=== PATIENT | female | born 2000 | race Hispanic/Latino ===

== ENCOUNTER 2021-09-27 11:25 | Emergency (ER) | payer OTHER ==
--- OUTSIDE RECORDS SUMMARY | 2021-09-27 11:30 | XMS REPORT | Continuity of Care Document ---
:[address] [facility] t Address 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 Clinician Ned TORRES, N Attending Clinician MIKE Admitting Clinician Unavailable Payers Payer Name Policy Type Policy Number Effective Date Expiration Date Latrice solorio [place] [employer] [id number] 2019 HEALTH 00:00:00 Problems Condition Condition Condition Status Onset Resolution Last Treating Co mments Source Name Details Category Date Date Treatment Clinician Date No known No known Disease Unive rs active active ity of problems problems [facility] Allergies, Adverse Reactions, Alerts Allergy Allergy Status Severity Reaction(s) Onset Inactive Treating Comm ents Source Name Type Date Date Clinician DIPHENHY DRUG Active Hives 2018- Univers DRAMINE INGREDI 3-20 ity of HCL 00:00: [address] Diphenhy Propensi Active Hives 2018- Univer s dramine ty to 3-20 ity of Hcl adverse 00:00: [place] reaction [address] [place] [address] diphenhy DA Active [place] 2019- [facility] 1-11 [place] [facility] [place] [place] 2016- [facility] dr[facility] 2-18 [place] 00:00: [facility] CEFTRIAX DRUG Active Unknown-Cmnt Un katty GINGER INGREDI 04-27 ity of 00:00: [place] 00 Medical Branch Ceftriax Propensi Active Unknown - Red Uni vers one ty to See comments 04-27 streaking i ty of adverse 00:00: [place] reaction 00 Medical s Branch Social History Social Habit Start Date Stop Date Quantity Comments Source Exposure to Yes University of SARS-CoV-2 [facility] (event) Branch History SDUT University o f Alcohol Comment [facility] History SDOH University o f Alcohol Std [facility] Drinks [facility] History [facility] University o f Alcohol Binge [facility] Alcohol intake 2021-07-28 2021-07-28 Lifetime University of 00:00:00 00:00:00 non-drinker [facility] (finding) Branch History SDOH 2019-03-17 2019-03-17 1 University o f Alcohol Frequency 00:00:00 00:00:00 [facility] edical Branch Tobacco use and 2018-10-23 2018-10-23 Never used Universit y of exposure 00:00:00 00:00:00 [facility] Sex Assigned At [birth year] Universit y of 00:00:00 00:00:00 [facility] Smoking Status Start Date Stop Date Source Never smoker [facility] Medications Ordered Filled Start Stop Current Ordering Indication Dosage Frequency Signature Comments Components Source Medication Medication Date Date Medication? Clinician (SIG) Name Name HYDROcodone 2020-08- No 1{tbl} 1 tablet, Univers -acetaminop 2- 12-24 Oral, ity of hen (NORCO 08:45: 07:49 ONCE, 1 Chirag as 5) 5-325 mg 00 :00 dose, On Medi ian tablet 1 Fri Branch tablet 07/29/21 at 0245, GOVIND ibuprofen 2020-08- No 800mg 800 mg, Uni vers (IBU) 2-24 12-24 Oral, ity of tablet 800 08:45: 07:49 ONCE, 1 Chirag as mg 00 :00 dose, On Medical Fri Branch 07/29/21 at 0245, GOVIND HYDROcodone 2020-08- No 1{tbl} 1 tablet, Univers -acetaminop 2-24 12-24 Oral, ity of hen (NORCO 05:07: 05:12 ONCE, 1 Chirag as 5) 5-325 mg 00 :00 dose, On Medi ian tablet 1 Apryl Branch tablet 07/28/21 at 2315, GOVIND ibuprofen 2020-08 Yes [id number] 800mg Take 1 Univers 800 mg 2-24 [id number] tablet by ity of tablet 00:00: mouth [place] 00 every 8 Medical (eight) Branch hours as needed for Pain (scale 4-6). acetaminoph 2020-08- Yes [id number] 1{tbl} Take 1 U nivers en-codeine 2-24 - tablet by ity of 300-30 mg 00:00: 05:59 mouth [place] tablet 00 :00 every 6 Medical (six) Branch hours as needed for Pain (scale 7-10) for up to 7 days. Indication s: acute pain acetaminoph 2020-08- No [id number] 1{tbl} Take 1 U nivers en-codeine 2-23 12-23 tablet by ity of 300-30 mg 00:00: 00:00 mouth [place] tablet 00 :00 every 6 Medical (six) Branch hours as needed for Pain (scale 7-10) for up to 7 days. Indication s: acute pain levonorgest 2020-08 Yes [id number] 1{tbl} Take 1 Univers rel-ethinyl 1-23 tablet by ity of estradiol 00:00: mouth [place] (SRONYX) 00 daily. Medical 0.1-20 Branch mg-mcg per tablet levonorgest 2020-08 Yes [id number] 1{tbl} Take 1 Univers rel-ethinyl 1-23 tablet by ity of estradiol 00:00: mouth [place] (SRONYX) 00 daily. Medical 0.1-20 Branch mg-mcg per tablet levonorgest 2020- No [id number] 1{tbl} Take 1 Univers rel-ethinyl 3-18 11-23 tablet by it y of estradiol 00:00: 00:00 mouth [place] (SRONYX) 00 :00 daily. Medical 0.1-20 Branch mg-mcg per tablet Immunizations Ordered Immunization Filled Immunization Date Status Commen ts Source Name Name Typhoid, Unspecified 2017-02-08 Completed Univ ersity of Formulation 00:00:00 [facility] Typhoid, Unspecified 2017-02-08 Completed Univ ersity of Formulation 00:00:00 [facility] Meningococcal 2013-01-07 Completed University of Vaccine 00:00:00 [facility] TDAP 2013-01-07 Completed University of 00:00:00 [facility] Varicella 2013-01-07 Completed University of (varivax)(chicken 00:00:00 [place] [facility] pox) Branch Meningococcal 2013-01-07 Completed University of Vaccine 00:00:00 [facility] TDAP 2013-01-07 Completed University of 00:00:00 [facility] Varicella 2013-01-07 Completed University of (varivax)(chicken 00:00:00 [place] [facility] pox) [facility] TDAP 2012-03-15 Completed University of 00:00:00 [facility] TDAP 2012-03-15 Completed University of 00:00:00 [facility] Meningococcal 2009-12-03 Completed University of Vaccine 00:00:00 [facility] Meningococcal 2009-12-03 Completed University of Vaccine 00:00:00 [facility] HEPATITIS A 2006-08-02 Completed University of 00:00:00 [facility] HEPATITIS A 2006-08-02 Completed University of 00:00:00 [facility] Pneumococcal 13 2006-01-23 Completed Universit y of Conjugate, PCV13 00:00:00 [facility] dical (Prevnar 13) Branch Pneumococcal 13 2006-01-23 Completed Universit y of Conjugate, PCV13 00:00:00 [facility] dical (Prevnar 13) Branch DTAP 2005-10-31 Completed University of 00:00:00 [facility] HEPATITIS A 2005-10-31 Completed University of 00:00:00 [facility] MMR 2005-10-31 Completed University of 00:00:00 [facility] Pneumococcal 13 2005-10-31 Completed Universit y of Conjugate, PCV13 00:00:00 [facility] dical (Prevnar 13) Branch Polio (IPV/OPV) 2005-10-31 Completed Universit y of 00:00:00 [facility] DTAP 2005-10-31 Completed University of 00:00:00 [facility] HEPATITIS A 2005-10-31 Completed University of 00:00:00 [facility] MMR 2005-10-31 Completed University of 00:00:00 [facility] Pneumococcal 13 2005-10-31 Completed Universit y of Conjugate, PCV13 00:00:00 [facility] dical (Prevnar 13) Branch Polio (IPV/OPV) 2005-10-31 Completed Universit y of 00:00:00 [facility] Hep B, Adol or Pedi 2003-09-25 Completed Unive rsity of Dosage 00:00:00 [facility] Hep B, Adol or Pedi 2003-09-25 Completed Unive rsity of Dosage 00:00:00 [facility] Pneumococcal 13 2003-04-14 Completed Universit y of Conjugate, PCV13 00:00:00 [facility] dical (Prevnar 13) Branch Pneumococcal 13 2003-04-14 Completed Universit y of Conjugate, PCV13 00:00:00 [facility] dical (Prevnar 13) Branch DTAP 2002-11-12 Completed University of 00:00:00 [facility] HIB 4 Dose Schedule 2002-11-12 Completed Unive rsity of 00:00:00 [facility] MMR 2002-11-12 Completed University of 00:00:00 [facility] Polio (IPV/OPV) 2002-11-12 Completed Universit y of 00:00:00 [facility] Varicella 2002-11-12 Completed University of (varivax)(chicken 00:00:00 [place] [facility] pox) Branch DTAP 2002-11-12 Completed University of 00:00:00 [facility] HIB 4 Dose Schedule 2002-11-12 Completed Unive rsity of 00:00:00 [facility] MMR 2002-11-12 Completed University of 00:00:00 [facility] Polio (IPV/OPV) 2002-11-12 Completed Universit y of 00:00:00 [facility] Varicella 2002-11-12 Completed University of (varivax)(chicken 00:00:00 [place] [facility] pox) Branch DTAP 2002-01-09 Completed University of 00:00:00 [facility] HIB 4 Dose Schedule 2002-01-09 Completed Unive rsity of 00:00:00 [facility] DTAP 2002-01-09 Completed University of 00:00:00 [facility] HIB 4 Dose Schedule 2002-01-09 Completed Unive rsity of 00:00:00 [facility] DTAP 2001 Completed University of 00:00:00 [facility] HIB 4 Dose Schedule 2001 Completed Unive rsity of 00:00:00 [facility] Polio (IPV/OPV) 2001 Completed Universit y of 00:00:00 [facility] DTAP 2001 Completed University of 00:00:00 [facility] HIB 4 Dose Schedule 2001 Completed Unive rsity of 00:00:00 [facility] Polio (IPV/OPV) 2001 Completed Universit y of 00:00:00 [facility] DTAP 2001 Completed University of 00:00:00 [facility] HIB 4 Dose Schedule 2001 Completed Unive rsity of 00:00:00 [facility] Hep B, Adol or Pedi 2001 Completed Unive rsity of Dosage 00:00:00 [facility] Pneumococcal 13 2001 Completed Universit y of Conjugate, PCV13 00:00:00 [facility] dical (Prevnar 13) Branch Polio (IPV/OPV) 2001 Completed Universit y of 00:00:00 [facility] DTAP 2001 Completed University of 00:00:00 [facility] HIB 4 Dose Schedule 2001 Completed Unive rsity of 00:00:00 [facility] Hep B, Adol or Pedi 2001 Completed Unive rsity of Dosage 00:00:00 [facility] Pneumococcal 13 2001 Completed Universit y of Conjugate, PCV13 00:00:00 [facility] dical (Prevnar 13) Branch Polio (IPV/OPV) 2001 Completed Universit y of 00:00:00 [facility] Hep B, Adol or Pedi 2001 Completed Unive rsity of Dosage 00:00:00 [facility] Hep B, Adol or Pedi 2001 Completed Unive rsity of Dosage 00:00:00 [facility] Vital Signs Vital Name Observation Time Observation Value Comments Source Systolic blood 2021-07-29 05:05:00 128 mm[Hg] Univer sity of pressure [facility] Diastolic blood 2021-07-29 05:05:00 86 mm[Hg] Unive rsity of pressure [facility] Heart rate 2021-07-29 05:05:00 80 /min Universi ty of [facility] [place] Body temperature 2021-07-29 05:05:00 37.33 [place] Univ ersity of [facility] Respiratory rate 2021-07-29 05:05:00 18 /min Univ ersity of [facility] Body height 2021-07-29 05:05:00 160 cm Universi ty of [facility] [place] Body weight 2021-07-29 05:05:00 80.287 kg Universi ty of [facility] BMI 2021-07-29 05:05:00 31.35 kg/m2 Universi ty of [facility] Oxygen saturation in 2021-07-29 05:05:00 100 /min [facility] Arterial blood by [facility] Pulse oximetry Branch Systolic blood 2021-06-28 15:38:00 111 mm[Hg] Univer sity of pressure [facility] Diastolic blood 2021-06-28 15:38:00 68 mm[Hg] Unive rsity of [facility] Heart rate 2021-06-28 15:38:00 76 /min Universi ty of [facility] Body temperature 2021-06-28 15:38:00 36.89 [place] Univ ersity of [facility] Respiratory rate 2021-06-28 15:38:00 18 /min Univ ersity of [facility] Body height 2021-06-28 15:38:00 157.5 cm Universi ty of [facility] Body weight 2021-06-28 15:38:00 79.924 kg Universi ty of [facility] BMI 2021-06-28 15:38:00 32.23 kg/m2 Universi ty of [facility] Procedures Procedure Date / Time Performed Performing Clinician Sour e XR ANKLE 3+ VW LEFT 2021-07-29 05:41:00 Don Mckeon [facility] XR FOOT 3+ VW LEFT 2021-07-29 05:41:00 Don Mckeon [facility] NOTICE OF PRIVACY 2021-07-29 04:51:59 Doctor Unassigned, No Univ [facility] Name Medical Branch CONSENT/REFUSAL FOR 2021-07-29 04:51:40 Doctor Unassigned, No [facility] TREATMENT POCT TEST 2021-06-28 15:45:00 Katey Marino [facility] Encounters Start End Encounter Admission Attending Care Care Encounter Source Date/Time Date/Time Type Type Clinicians Facility Department ID 2021-10-03 2021-10-03 Outpatient R [facility] [id number] Univers 15:00:00 15:00:00 [id number] [facility] 2021-09-28 2021-09-28 Outpatient R [facility] [id number] Univers 10:30:00 10:30:00 [facility] 2021-09-27 2021-09-27 Outpatient R [facility] [id number] Univers 09:00:00 09:00:00 [id number] [facility] 2021-07-28 2021-07-29 Emergency X MCKEON, [facility] ERT [id number] Univers 23:08:00 02:00:00 DON [facility] 2021-07-28 2021-07-29 Emergency Mckeon, [facility] [id number] Univers 23:08:00 02:00:00 Don SALAZAR [id number] i ty [facility] [id number] [facility] [id number] [address] 2021-06-28 2021-06-28 Office NASIR Marino [id number] Univers 09:21:28 09:58:16 Visit Katey Gonzalez [employer] [id number] it y of [facility] [id number] Chirag as MATERNAL [id number] Med ical & CHILD [address] [place] [address] Results Test Description Test Time Test Comments Results Result Comments Source POCT TEST 2021-06-28 15:45:00 Test Item Value Reference Range Interpretation Comme nts POCT PREG (test code = 1605) Negative On board controls acceptable with C Line (test code = 3574) Yes POCT PREG LOT # (test code = 3575) POCT PREG TEST DATE (test code = 3576) [facility]
[2021-09-27 12:18] LABS: Urine Blood 3+ (Negative); Urine Glucose Negative (Negative); Urine Protein Negative (Negative); Urine Specific Gravity 1.025 (1.005-1.030); Urine pH 8.5 (5.0-7.0)
[2021-09-27 12:41] LABS: SARS-COV-2 RT PCR NEGATIVE (NEGATIVE)
[2021-09-27 13:03] LABS: Urine Specific Gravity/Preg 1.025 (1.005-1.030)
--- NOTE | 2021-09-27 15:34 | ER ---
Nurse's Notes [facility] Name: Fauzia Park Age: 21 yrs Sex: Female : 2000 Arrival Date: 09/27/2021 Time: 11:30 Bed External Waiting Private MD: Diagnosis: Presentation: 09/27 11:41 Chief complaint: Patient states: patient reports having back pain, hip pain, and a ap3 headache since Sunday. Patient reports having started her menstrual cycle that day, but feels like her cramping is more severe than usual. Patient also reports abdominal pain and nausea. Coronavirus screen: fatigue, fever, headache, muscle pain, nausea, Client presents with at least one sign or symptom that may indicate coronavirus-19. Standard/surgical mask placed on the client. Provider contacted for isolation considerations. Ebola Screen: No symptoms or risks identified at this time. Initial Sepsis Screen: Does the patient meet any 2 criteria? No. Patient's initial sepsis screen is negative. Does the patient have a suspected source of infection? No. Patient's initial sepsis screen is negative. Risk Assessment: Do you want to hurt yourself or someone else? Patient reports no desire to harm self or others. Onset of symptoms was September 25, 2021. 11:41 Method Of Arrival: Ambulatory ap3 11:41 Acuity: ALEXIS 3 ap3 Triage Assessment: 11:44 General: Appears in no apparent distress. Behavior is calm, cooperative. Pain: ap3 Complains of pain in back, hips, abdomen and head Pain began gradually, 2-3 days ago. Neuro: Level of Consciousness is awake, alert, obeys commands, Oriented to person, place, time, situation, Appropriate for age Gait is steady, Speech is normal. Cardiovascular: Patient's skin is warm and dry. Respiratory: Airway is patent Respiratory effort is even, unlabored, Respiratory pattern is regular, symmetrical. GI: Reports lower abdominal pain, upper abdominal pain, nausea. Musculoskeletal: Capillary refill < 3 seconds, Reports pain in back, hips, abdomen and head. 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 Flu vaccine is not up to date. - Social history:: Smoking status: Patient denies any tobacco usage or history of. Screenin:45 Abuse screen: Denies threats or abuse. Nutritional screening: No deficits noted. ap3 Tuberculosis screening: No symptoms or risk factors identified. Assessment: 15:32 Reassessment: Called to exam room on 3 different occasions. Unable to locate patient in ED lobby. No answer. Vital Signs: 11:41 BP 126 / 82; Pulse 80; Resp 16; Temp 98.2; Pulse Ox 99% ; Weight 80.74 kg; Height 5 ft. ap3 3 in. (160.02 cm); 11:41 Body Mass Index 31.53 (80.74 kg, 160.02 cm) ap3 ED Course: 11:30 Patient arrived in ED. mr 11:36 [facility]-C [facility] kb 11:36 Faith Tee MD is Attending Physician. kb 11:43 Triage completed. ap3 11:45 Arm band placed on left wrist. ap3 15:33 No provider procedures requiring assistance completed. Patient did not have IV access ss during this emergency room visit. Administered Medications: No medications were administered Outcome: 15:33 Patient left the ED. Signatures: Mery Brown FNP-C FNP-Ckb Rivera, Mary Gwen Mcgovern, RN MELINA Josiane Rodriguez RN RN ap3
[2021-09-27 16:28] VITALS: BP 126/82; TEMP 98.2; O2SAT 99
== END 2021-09-27 15:33 | disposition left against medical advice (07) ==
LOC: ER 11:25
DX: Z53.21 Procedure and treatment not carried out due to patient leaving prior to being seen by health care provider (principal); Z20.822 Contact with and (suspected) exposure to COVID-19
CPT/HCPCS: 81025; 81003; 0240U; 99281

== ENCOUNTER 2022-10-06 11:19 | Emergency (ER) | payer OTHER ==
--- OUTSIDE RECORDS SUMMARY | 2022-10-06 11:24 | XMS REPORT | Continuity of Care Document ---
:2000 Author Organization [facility] t Address [address] [facility] [address] [place] [id number] Care Team Providers Name Role Phone Pcp, Patient Does Not Have A Primary Care Physician [id number] Zenobia Sepulveda Attending Clinician ZENOBIA LÓPEZ Attending Clinician Unavailable Doctor Unassigned, Chicken Attending Clinician Unavailable Lilia Peter Attending Clinician [phone] LILIA FAIRBANKS Attending Clinician Unavailable IRIS FRANCISCO Attending Clinician Unavailable Iris Francisco DO Attending Clinician DON MCKEON Attending Clinician Unavailable Don Ocampo Attending Clinician Katey Zimmer Attending Clinician KATEY FRANCISCO Attending Clinician Unavailable Toni Page DO [facility] Unavailable Lab, Adc Fam Pob I Attending Clinician Unavailable Dory TORRES, Cortney Attending Clinician CORTNEY CONNORS Attending Clinician Unavailable Only, Web Test Attending Clinician Unavailable Arian JACOBSON, Jb Galindo Attending Clinician JB DON Attending Clinician Unavailable PATRICIA LEACH Attending Clinician Unavailable Hany HOSPITAL MEDICAL ASSISTANT, Patricia Attending Clinician Joey SUMMERS, Jaqueline H Attending Clinician Unavailable ANNA NUGENT Attending Clinician Unavailable Jovanna CAMARGO, Anna Morales Attending Clinician Alexandria JACOBSON, Phan Sadler Attending Clinician Halima TORRES, Joan Attending Clinician JOAN VARGHESE Attending Clinician Unavailable Augsuta Barajas PA-C Attending Clinician AUGUSTA BARAJAS Attending Clinician Unavailable Lab, Lkj Pedi Attending Clinician Unavailable Omega Srinivasan MD Attending Clinician IRIS FRANCISCO Admitting Clinician Unavailable DON MCKEON Admitting Clinician Unavailable Payers Payer Name Policy Type Policy Number Effective Date Expiration Date S ource Problems Condition Condition Condition Status Onset Resolution Last Treating Co mments Source Name Details Category Date Date Treatment Clinician Date Screening Screening Disease Active Uni vers examinatio examinatio 02-28 it y of n for STD n [place] ([place] ([place] 00 Medi ian transmitte transmitte Br anch d disease) d disease) Menorrhagi Menorrhagi Disease Active U nivers a with a with 7- ity of regular regular 00:00: [place] cycle cycle 00 Medical Branch Vaginal Vaginal Disease Active Univers discharge discharge 02-28 ity of 00:00: [place] 00 Medical Branch Class 1 Class 1 Disease Active Univers obesity obesity - ity of due to due to 00:00: [place] excess excess 00 Medical calories calories Branch with body with body mass index mass index (BMI) of (BMI) of 33.0 to 33.0 to 33.9 in 33.9 in adult, adult, unspecifie unspecifie d whether d whether serious serious comorbidit comorbidit y present y present BMI BMI Disease Active Univers 33.0-33.9, 33.0-33.9, 7-26 it y of adult adult 00:00: [place] 00 Medical Branch Allergies, Adverse Reactions, Alerts Allergy Allergy Status Severity Reaction(s) Onset Inactive Treating Comm ents Source Name Type Date Date Clinician Tere Propensi Active Hives Univer s dramine ty to 3-20 ity of Hcl adverse 00:00: [place] reaction 00 Medical s Branch diphenhy DA Active [place] [facility]-11 [place] [facility] diphenhy DA Active [place] 2016-08 [facility] dramine 2-18 [place] 00:00: [facility] Social History Social Habit Start Date Stop Date Quantity Comments Source History SDOH University o f Alcohol Comment [place] [facility] ical Branch History SDOH University o f Alcohol Std [place] [facility] Drinks Branch History SDOH University o f Alcohol Binge [place] [facility] al Branch Exposure to 2022-03-03 2022-03-13 Not sure [facility] SARS-CoV-2 00:00:00 11:02:00 [facility] (event) Branch Alcohol intake 2022-03-13 2022-03-13 Lifetime University of 00:00:00 00:00:00 non-drinker [place] [facility] (finding) Branch Tobacco use and 2022-02-28 2022-02-28 Smokeless tobacco Un iversity of exposure 00:00:00 00:00:00 non-user [place] [facility] History SDOH 2019-03-17 2019-03-17 1 University o f Alcohol Frequency 00:00:00 00:00:00 [facility] edical [place] Sex Assigned At 2000 2001 Universit y of 00:00:00 00:00:00 [facility] Smoking Status Start Date Stop Date Source Never smoked tobacco [facility] Medications Ordered Filled Start Stop Current Ordering Indication Dosage Frequency Signature Comments Components Source Medication Medication Date Date Medication? Clinician (SIG) Name Name norgestimat Yes [id number] 1{tbl} Take 1 Univers e-ethinyl 8-08 tablet by ity o f estradioL 00:00[place] 0.[place]/0.215/ 00 the Medical 0.25 mg-25 morning. Branc h mcg tablet norgestimat Yes [id number] 1{tbl} Take 1 Univers e-ethinyl 8-08 tablet by ity o f estradioL 00:00: mouth in [place] [facility] 0.18/0.215/ 00 the Medical 0.25 mg-25 morning. Branc h mcg tablet FERROUS Yes Univers SULFATE, 7-26 ity of BULK, MISC 14:13: [address] FERROUS 0 Yes Univers SULFATE, 7-26 ity of BULK, MISC 14:13: [address] escitalopra Yes 10mg Take 10 mg Univers m oxalate 5-29 by mouth ity of 10 mg 00:00: in the [place] tablet 00 morning. [facility] escitalopra Yes 10mg Take 10 mg Univers m oxalate 5-29 by mouth ity of 10 mg 00:00: in the [place] tablet 00 morning. [facility] Immunizations Ordered Immunization Filled Immunization Date Status Commen ts Source Name Name Typhoid, Unspecified 2017-02-08 Completed Univ ersity of Formulation 00:00:00 [facility] Typhoid, Unspecified 2017-02-08 Completed Univ ersity of Formulation 00:00:00 [facility] Meningococcal 2013-01-07 Completed University of Vaccine 00:00:00 [facility] TDAP 2013-01-07 Completed University of 00:00:00 [facility] Varicella 2013-01-07 Completed University of (varivax)(chicken 00:00:00 [place] [facility] edical pox) [place] Meningococcal 2013-01-07 Completed University of Vaccine 00:00:00 [facility] TDAP 2013-01-07 Completed University of 00:00:00 [facility] Varicella 2013-01-07 Completed University of (varivax)(chicken 00:00:00 [place] [facility] edical pox) Branch TDAP 2012-03-15 Completed University of 00:00:00 [facility] TDAP 2012-03-15 Completed University of 00:00:00 [facility] Meningococcal 2009-12-03 Completed University of Vaccine 00:00:00 [facility] Meningococcal 2009-12-03 Completed University of Vaccine 00:00:00 [facility] HEPATITIS A 2006-08-02 Completed University of 00:00:00 [facility] HEPATITIS A 2006-08-02 Completed University of 00:00:00 [facility] Branch Pneumococcal 13 2006-01-23 Completed Universit y of Conjugate, PCV13 00:00:00 [place] Me dical (Prevnar 13) Branch Pneumococcal 13 2006-01-23 Completed Universit y of Conjugate, PCV13 00:00:00 [facility] [place] [facility] dical (Prevnar 13) Branch DTAP 2005-10-31 Completed University of 00:00:00 [facility] HEPATITIS A 2005-10-31 Completed University of 00:00:00 [facility] MMR 2005-10-31 Completed University of 00:00:00 [facility] Pneumococcal 13 2005-10-31 Completed Universit y of Conjugate, PCV13 00:00:00 [facility] [place] [facility] dical (Prevnar 13) Branch Polio (IPV/OPV) 2005-10-31 Completed Universit y of 00:00:00 [facility] DTAP 2005-10-31 Completed University of 00:00:00 [facility] HEPATITIS A 2005-10-31 Completed University of 00:00:00 [facility] MMR 2005-10-31 Completed University of 00:00:00 [facility] Pneumococcal 13 2005-10-31 Completed Universit y of Conjugate, PCV13 00:00:00 [facility] [place] [facility] dical (Prevnar 13) Branch Polio (IPV/OPV) 2005-10-31 Completed Universit y of 00:00:00 [facility] Hep B, Adol or Pedi 2003-09-25 Completed Unive rsity of Dosage 00:00:00 [facility] Hep B, Adol or Pedi 2003-09-25 Completed Unive rsity of Dosage 00:00:00 [facility] Pneumococcal 13 2003-04-14 Completed Universit y of Conjugate, PCV13 00:00:00 [facility] [place] [facility] dical (Prevnar 13) Branch Pneumococcal 13 2003-04-14 Completed Universit y of Conjugate, PCV13 00:00:00 [facility] [place] [facility] dical (Prevnar 13) Branch DTAP 2002-11-12 Completed University of 00:00:00 [facility] HIB 4 Dose Schedule 2002-11-12 Completed Unive rsity of 00:00:00 [facility] MMR 2002-11-12 Completed University of 00:00:00 [facility] Polio (IPV/OPV) 2002-11-12 Completed Universit y of 00:00:00 [facility] Varicella 2002-11-12 Completed University of (varivax)(chicken 00:00:00 [place] [facility] edical pox) Branch DTAP 2002-11-12 Completed University of 00:00:00 [facility] HIB 4 Dose Schedule 2002-11-12 Completed Unive rsity of 00:00:00 [facility] MMR 2002-11-12 Completed University of 00:00:00 [facility] Polio (IPV/OPV) 2002-11-12 Completed Universit y of 00:00:00 [facility] Varicella 2002-11-12 Completed University of (varivax)(chicken 00:00:00 [place] [facility] edical pox) Branch DTAP 2002-01-09 Completed University of 00:00:00 [facility] HIB 4 Dose Schedule 2002-01-09 Completed Unive rsity of 00:00:00 [facility] DTAP 2002-01-09 Completed University of 00:00:00 [facility] HIB 4 Dose Schedule 2002-01-09 Completed Unive rsity of 00:00:00 [facility] DTAP 2001 Completed University of 00:00:00 [facility] HIB 4 Dose Schedule 2001 Completed Unive rsity of 00:00:00 [facility] Polio (IPV/OPV) 2001 Completed Universit y of 00:00:00 [facility] DTAP 2001 Completed University of 00:00:00 [facility] HIB 4 Dose Schedule 2001 Completed Unive rsity of 00:00:00 [facility] Polio (IPV/OPV) 2001 Completed Universit y of 00:00:00 [facility] DTAP 2001 Completed University of 00:00:00 [facility] HIB 4 Dose Schedule 2001 Completed Unive rsity of 00:00:00 [facility] Hep B, Adol or Pedi 2001 Completed Unive rsity of Dosage 00:00:00 [facility] Pneumococcal 13 2001 Completed Universit y of Conjugate, PCV13 00:00:00 [facility] [place] [facility] dical (Prevnar 13) Branch Polio (IPV/OPV) 2001 Completed Universit y of 00:00:00 [facility] DTAP 2001 Completed University of 00:00:00 [facility] HIB 4 Dose Schedule 2001 Completed Unive rsity of 00:00:00 [facility] Hep B, Adol or Pedi 2001 Completed Unive rsity of Dosage 00:00:00 [facility] Pneumococcal 13 2001 Completed Universit y of Conjugate, PCV13 00:00:00 [facility] [place] [facility] dical (Prevnar 13) [place] Polio (IPV/OPV) 2001 Completed Universit y of 00:00:00 [facility] Hep B, Adol or Pedi 2001 Completed Unive rsity of Dosage 00:00:00 [facility] Hep B, Adol or Pedi 2001 Completed Unive rsity of Dosage 00:00:00 [facility] Vital Signs Vital Name Observation Time Observation Value Comments Source Systolic blood 2022-03-13 16:03:00 110 mm[Hg] Univer sity of pressure [facility] Diastolic blood 2022-03-13 16:03:00 75 mm[Hg] Unive rsity of pressure [facility] Heart rate 2022-03-13 16:03:00 81 /min [facility] Body temperature 2022-03-13 16:03:00 36.44 [facility] Respiratory rate 2022-03-13 16:03:00 16 /min [facility] Body height 2022-03-13 16:03:00 160 cm [facility] Body weight 2022-03-13 16:03:00 85.503 kg [facility] BMI 2022-03-13 16:03:00 33.39 kg/m2 [facility] Procedures Procedure Date / Time Performed Performing Clinician Sourc e POCT TEST 2022-03-13 16:05:00 [facility] Encounters Start End Encounter Admission Attending Care Care Encounter Source Date/Time Date/Time Type Type Clinicians Facility Department ID 2022-04-03 2022-04-03 Telephone NASIR López [id number] [facility] 00:00:00 00:00:00 Zenobia Gill BREWMASTER [id number] ity of [facility] [id number] Chirag as MATERNAL [phone] [facility] & CHILD [address] [place] [address] 2022-03-14 2022-03-14 Outpatient R RENE [facility] [id number] Univers 15:30:00 15:30:00 [facility] 2022-03-14 2022-03-14 [facility] [id number] Univers 15:30:00 15:30:00 [facility] o [facility] 2022-03-13 2022-03-13 [facility] [id number] Univers 10:30:00 11:31:56 [facility] torres o [facility] 2022-03-13 2022-03-13 [facility] [id number] Univers 10:30:00 11:31:56 Visit [facility] R BREWMASTER [id number] ity of [facility] [id number] Chirag as MATERNAL [phone] [facility] & CHILD [address] [place] [address] 2022-03-13 2022-03-13 Orders Doctor RONALD [id number] Univers 00:00:00 00:00:00 Only Unassigned, RINKU [id number] ity of Chicken [facility] [id number] Chirag as [phone] [address] 2022-02-28 2022-02-28 Outpatient Bridget LÓPEZ [facility] [id number] Univers 13:30:00 14:32:03 [facility]res o [facility] 2022-02-28 2022-02-28 [facility] [id number] Univers 13:30:00 14:32:03 Visit [facility] R BREWMASTER [id number] ity of [facility] [id number] Chirag as MATERNAL [phone] [facility] & CHILD [address] [place] [address] 2022-02-28 2022-02-28 Orders Doctor RONADL [id number] Univers 00:00:00 00:00:00 Only Unassigned, RINKU [id number] ity of [facility] [id number] Chirag as [phone] [address] 2021-10-12 2021-10-12 [facility] [id number] Univers 00:00:00 00:00:00 Lilia Valero BREWMASTER [id number] ity of [facility] [id number] Chirag as MATERNAL [phone] [facility] ical & CHILD [address] [place] [address] 2021-10-07 2021-10-07 [facility] [id number] Univers 15:45:00 15:45:00 LILIA beth [facility] 2021-10-05 2021-10-05 [facility] [id number] Univers 00:00:00 00:00:00 Zenobia Gill BREWMASTER [id number] ity of [facility] [id number] Chirag as MATERNAL [phone] [facility] & [address] 2021-10-03 2021-10-03 Outpatient R [facility] [id number] Univers 15:00:00 15:00:00 LILIA beth [facility] 2021-09-28 2021-09-28 Outpatient R [facility] [id number] Univers 10:30:00 10:30:00 ity [facility] 2021-09-28 2021-09-28 Outpatient R [facility] [id number] Univers 10:30:00 10:30:00 itjer [facility] 2021-09-27 2021-09-27 Emergency X MARYAM ORRED ERT [id number] Univers 16:27:00 19:21:00 IRIS torres [facility] 2021-09-27 2021-09-27 Emergency Maryam ORRED [id number] Univers 16:27:00 19:21:00 Iris SALAZAR [id number] ity of [place] 4.2.7.2.686 [facility] [phone] [facility] 084 [place] 2021-09-27 2021-09-27 Orders Doctor RONALD 1.2.840.114 [id number] Univers 00:00:00 00:00:00 Only Unassigned, RINKU [id number] ity of [facility] [id number] Chirag as [phone] [facility] 009 Branch 2021-07-28 2021-07-29 Emergency X MCKEON, [facility] ERT [id number] Univers 23:08:00 02:00:00 DON torres [facility] 2021-07-28 2021-07-29 Emergency [facility] 1.2.840.114 [id number] Univers 23:08:00 02:00:00 Don SALAZAR [id number] i ty [facility] [id number] [facility] [phone] [address] 2021-06-28 2021-06-28 Office [facility] [id number] Univers 09:21:28 09:58:16 Visit Katey Gonzalez BREWMASTER [id number] it y of [facility] [id number] Chirag as MATERNAL [phone] Med ical & CHILD [address] [place] [address] 2021-06-28 2021-06-28 Outpatient R MARYAM [facility] [id number] Univers 09:15:00 09:58:16 KATEY torres [facility] 2021-01-21 2021-01-21 Outpatient R [facility] [id number] Univers 13:00:00 13:00:00 brian [facility] 2021-01-20 2021-01-20 Outpatient [facility] [id number] Univers 13:15:00 13:15:00 ZENOBIA torres o f [facility] 2021-01-17 2021-01-17 [facility] [id number] Univers 00:00:00 00:00:00 Lilia C BREWMASTER [id number] ity of [facility] [id number] Chirag as MATERNAL [phone] [facility] & CHILD [address] [place] [address] 2020-11-17 2020-11-17 Refill Janineacacia [facility] [id number] Univers 00:00:00 00:00:00 Lilia C BREWMASTER [id number] ity of [facility] [id number] Chirag as MATERNAL [phone] [facility] ical & CHILD [address] [place] [address] 2020-10-26 2020-10-26 Patient Camilo [facility] [id number] Univers 00:00:00 00:00:00 Outreach Toni AMBROSIO [id number] i ty [facility] [id number] [place] HERNANDE[place] [phone] [address] 2020-10-21 2020-10-21 Nurse Visit, [facility] Nurse [facility] 1.2 .840.114 [id number] Univers 13:19:39 13:48:01 Visit Zenobia López BREWMASTER [id number] ity of [facility] [id number] Chirag as MATERNAL [phone] [facility] & CHILD [address] [place] [address] 2020-10-21 2020-10-21 Outpatient R [facility] [id number] Univers 13:30:00 13:30:00 ity of [facility] 2020-10-08 2020-10-08 Telephone Rene [facility] [id number] Univers 00:00:00 00:00:00 Zenobia Gill BREWMASTER [id number] ity of [facility] [id number] Chirag as MATERNAL [phone] [facility] & CHILD [address] [place] [address] 2020-10-06 2020-10-06 Office Rene [facility] 1.2.840.114 [id number] Univers 15:15:18 16:15:58 Visit Roshunda R BREWMASTER 350.1.13.10 ity [facility] [id number] Chirag as MATERNAL [phone] Med ical & CHILD 107 [facility] 2020-10-06 2020-10-06 Outpatient R REEN [facility] [id number] Univers 15:15:00 15:15:00 ZENOBIA torres o f [facility] 2020-10-06 2020-10-06 Orders Doctor RONALD [id number] Univers 00:00:00 00:00:00 Only Unassigned, RINKU 350.1.13.10 ity of Chicken [facility] 4.2.7.2.686 Chirag as [phone] [address] 2020-09-23 2020-09-23 Outpatient R RENE [facility] [id number] Univers 14:45:00 14:45:00 ZENOBIA torres o f [facility] 2020-07-24 2020-07-24 Laboratory Lab, Adc Fam Pob I [facility] 1.2. [id number] [id number] Univers 08:45:01 09:05:01 Only Dory [facility] [id number] ity [facility] 4.2.7.2.686 Chirag as Professio [phone] Ca dical [facility] 0[address] [place] [address] 2020-07-24 2020-07-24 Outpatient [facility] [id number] Univers 08:40:00 08:40:00 CORTNEY ity [facility] 2020-07-16 2020-07-16 Laboratory Only, Web Test [facility] 1.2.840. [id number] Univers 18:49:06 19:04:06 Only Jb Don [facility] 350.1.13.10 ity of Specialty 4.2.7.2.686 [place] [facility] [place] [phone] [address] 2020-07-16 2020-07-16 Outpatient R ARIAN [facility] [id number] Univers 18:45:00 18:45:00 JB torres [facility] 2020-03-07 2020-03-07 Outpatient R HANY [facility] [id number] Univers 16:40:00 16:40:00 PATRICIA ity of [facility] 2020-03-07 2020-03-07 Laboratory Lab, [facility] Pob I [facility] 1.2. 840.114 [id number] Univers 14:08:51 14:28:51 Only Patricia [facility] [id number] ity of [place] 4.2.7.2.686 Chirag as Professio [phone] [address] Office [facility] 2020-02-13 2020-02-13 Telephone RONALD Cook 1.2.840.114 [id number] Univers 00:00:00 00:00:00 Jaqueline Sadler RINKU 350.1.13.10 i ty of HOSPITAL 4.2.7.2.686 Chirag as [phone] [address] 2020-02-12 2020-02-12 Outpatient R ANNA NUGENT [facility] [id number] Univers 11:20:00 11:20:00 ity of [facility] 2020-02-12 2020-02-12 Laboratory Lab, [facility] I [facility] 1.2. 840.114 [id number] Univers 10:25:51 10:45:51 Only Anna [facility] 350.1.13.10 ity of [place] 4.2.7.2.686 Chirag as Professio [phone] [address] 2020-02-09 2020-02-09 Telephone RONALD Ibrahim [id number] Univers 00:00:00 00:00:00 Phan DOBBS 350.1.13.10 i ty of HOSPITAL 4.2.7.2.686 Chirag as [phone] [address] 2020-02-06 2020-02-06 Laboratory Lab, Adc Fam Pob I [facility] 1.2. 840.114 [id number] Univers 09:55:56 10:15:56 Only Halima, [facility] [id number] ity of [place] 4.2.7.2.686 Chirag as Professio [phone] [address] Office [facility] 2020-02-06 2020-02-06 Outpatient R [facility] [id number] Univers 09:40:00 09:40:00 ity of [facility] 2020-02-06 2020-02-06 Outpatient R HALIMA [facility] [id number] Univers 09:20:00 09:20:00 JOAN ity [facility] 2020-01-29 2020-01-29 Telephone [facility] 1.2.840.11 [id number] Univers 00:00:00 00:00:00 , Augusta Brown [id number] it y of Pediatric 4.2.7.2.686 [facility] [id number] [address] 2019-12-15 2019-12-15 Office [facility] 1.2.840.114 [id number] [facility] 09:04:58 09:39:23 Visit , Augusta Brown [id number] it y of Pediatric 4.2.7.2.686 [facility] [id number] [address] 2019-12-15 2019-12-15 Outpatient R [facility] [id number] [facility] 09:10:00 09:10:00 , AUGUSTA ity of [facility] 2019-12-05 2019-12-05 Telephone [facility] 1.2.840.11 [id number] Univers 00:00:00 00:00:00 , Augusta Brown [id number] it y of Pediatric 4.2.7.2.686 [facility] [id number] [address] 2019-12-04 2019-12-04 [facility]opathic Doctor Lab, Lkj Pedi [facility] 1.2.840 .114 [id number] Univers 08:16:17 08:41:20 Visit Omega Srinivasan [id number] ity of Pediatric 4.2.7.2.686 [facility] [id number] [address] 2019-12-04 2019-12-04 Outpatient R [facility] [id number] Univers 08:15:00 08:15:00 ity [facility] 2019-12-03 2019-12-03 Telephone [facility] 1.2.840.11 [id number] Univers 00:00:00 00:00:00 , Augusta Brown [id number] it y of Pediatric 4.2.7.2.686 [facility] [id number] [address] 2019-10-08 2019-10-08 Telephone [facility] 1.2.840.11 [id number] Univers 00:00:00 00:00:00 , Augusta Brown [id number] it y of Pediatric 4.2.7.2.686 [facility] [id number] [address] 2019-09-16 2019-09-16 Office [facility] 1.2.840.114 [id number] [facility] 09:40:35 10:46:08 Visit , Augusta Brown [id number] it y of Pediatric 4.2.7.2.686 [facility] [id number] [address] 2019-09-16 2019-09-16 Letter [facility] 1.2.840.114 [id number] Univers 00:00:00 00:00:00 (Out) , Augusta Brown [id number] it y of Pediatric 4.2.7.2.686 [facility] [id number] [address] 2019-09-15 2019-09-15 Telephone [facility] 1.2.840.11 [id number] Univers 00:00:00 00:00:00 , Augusta Brown [id number] it y of Pediatric 4.2.7.2.686 [facility] [id number] [address] 2019-09-03 2019-09-03 Office [facility] 1.2.840.114 [id number] Univers 09:58:08 10:18:08 Visit , Augusta Brown [id number] it y of Pediatric 4.2.7.2.686 [facility] [id number] [address] 2019-09-03 2019-09-03 Letter [facility] 1.2.840.114 [id number] Univers 00:00:00 00:00:00 (Out) , Augusta Marylu Brown [id number] it y of Pediatric 4.2.7.2.686 [place] [facility] [id number] [address] 2019-03-24 2019-03-24 Office [facility] 1.2.840.114 [id number] Univers 10:46:22 11:19:37 Visit , Augusta Brown 350.1.13.10 it y of [facility].7.2.686 [facility] [id number] [address] 2019-03-24 2019-03-24 Letter [facility] 1.2.840.114 [id number] Univers 00:00:00 00:00:00 (Out) , Augusta Brown [id number] it y of Pediatric [facility].7.2.686 [facility] [id number] [address] 2019-03-17 2019-03-17 Office [facility] 1.2.840.114 [id number] Univers 13:29:08 14:26:49 Visit , Augusta Brown 350.1.13.10 it y of Pediatric 4.2.7.2.686 [place] [facility] [id number] [address] 2019-03-17 2019-03-17 Orders Doctor RONALD 1.2.840.114 [id number] Univers 00:00:00 00:00:00 Only Unassigned, RINKU 350.1.13.10 ity of Chicken [facility] 4.2.7.2.686 Chirag as [id number] [address] Results Test Description Test Time Test Comments Results Result Comments Source POCT TEST 2022-03-13 16:05:00 Test Item Value Reference Range Interpretation Comme nts POCT PREG (test code = 1605) Negative On board controls acceptable with C Line (test code = 3574) Yes POCT PREG LOT # (test code = 3575) POCT PREG TEST DATE (test code = 3576) [facility]
[2022-10-06] MEDS ORDERED: BUPIVACAINE 0.25% PF 10 ML VIAL ONE ×2 (11:55→11:57)
[2022-10-06] MEDS ORDERED: LIDOCAINE 1% MPF 5 ML VIAL ONE (11:55)
[2022-10-06] MEDS ORDERED: TDAP (DIPHTH,PERTUSS(ACELL),TET VAC) 0.5 ML VIAL IMVAC ONE (12:04)
--- NOTE | 2022-10-06 13:28 | EDPHYS ---
Physician Documentation [facility] Name: Fauzia Park Age: 22 yrs Sex: Female : 2000 Arrival Date: 10/06/2022 Time: 11:22 Bed 18 Private MD: ED Physician Lj Epperson HPI: 10/06 11:50 This 22 yrs old Female presents to ER via Ambulatory with complaints of Finger snw Injury, Laceration. 11:50 The patient or guardian reports injury, pain. The complaints affect the left middle snw distal phalanx with nail involved. Context: The problem was sustained at home, resulted from a crush injury, screen door slammed onto left middle fingertip. Onset: The symptoms/episode began/occurred suddenly, and became persistent. Associated signs and symptoms: The patient has no apparent associated signs or symptoms. Severity of symptoms: At their worst the symptoms were moderate. The patient has not experienced similar symptoms in the past. Historical: - Allergies: 11:39 Benadryl; jl7 - Home Meds: 11:39 Lexapro Oral [Active]; jl7 - PMHx: 11:39 Depressive disorder; jl7 - PSHx: 11:39 gastric sleeve December 2019; jl7 - Immunization history:: Last tetanus immunization: < 10 years ago. - Social history:: Smoking status: Patient denies any tobacco usage or history of. ROS: 11:50 Constitutional: Negative for fever, chills, and weight loss, Eyes: Negative for injury, snw pain, redness, and discharge, ENT: Negative for injury, pain, and discharge, Neck: Negative for injury, pain, and swelling, Cardiovascular: Negative for chest pain, palpitations, and edema, Respiratory: Negative for shortness of breath, cough, wheezing, and pleuritic chest pain, Abdomen/GI: Negative for abdominal pain, nausea, vomiting, diarrhea, and constipation, Back: Negative for injury and pain, : Negative for injury, bleeding, discharge, and swelling, MS/Extremity: Negative for injury and deformity, Neuro: Negative for headache, weakness, numbness, tingling, and seizure, Psych: Negative for depression, anxiety, suicide ideation, homicidal ideation, and hallucinations. 11:50 Skin: Positive for laceration(s), of the left middle finger. Exam: 11:49 Head/Face: Normocephalic, atraumatic. Eyes: Pupils equal round and reactive to light, snw extra-ocular motions intact. Lids and lashes normal. Conjunctiva and sclera are non-icteric and not injected. Cornea within normal limits. Periorbital areas with no swelling, redness, or edema. ENT: Nares patent. No nasal discharge, no septal abnormalities noted. Tympanic membranes are normal and external auditory canals are clear. Oropharynx with no redness, swelling, or masses, exudates, or evidence of obstruction, uvula midline. Mucous membranes moist. Neck: Trachea midline, no thyromegaly or masses palpated, and no cervical lymphadenopathy. Supple, full range of motion without nuchal rigidity, or vertebral point tenderness. No Meningismus. Chest/axilla: Normal chest wall appearance and motion. Nontender with no deformity. No lesions are appreciated. Cardiovascular: Regular rate and rhythm with a normal S1 and S2. No gallops, murmurs, or rubs. Normal PMI, no JVD. No pulse deficits. Respiratory: Lungs have equal breath sounds bilaterally, clear to auscultation and percussion. No rales, rhonchi or wheezes noted. No increased work of breathing, no retractions or nasal flaring. Abdomen/GI: Soft, non-tender, with normal bowel sounds. No distension or tympany. No guarding or rebound. No evidence of tenderness throughout. Back: No spinal tenderness. No costovertebral tenderness. Full range of motion. MS/ Extremity: Pulses equal, no cyanosis. Neurovascular intact. Full, normal range of motion. Neuro: Awake and alert, GCS 15, oriented to person, place, time, and situation. Cranial nerves II-XII grossly intact. Motor strength 5/5 in all extremities. Sensory grossly intact. Cerebellar exam normal. Normal gait. Psych: Awake, alert, with orientation to person, place and time. Behavior, mood, and affect are within normal limits. 11:49 Constitutional: The patient appears alert, awake, pale. 11:49 Skin: Appearance: Color: pale, Moisture: normal moisture, injury, laceration(s), the wound is approximately 3 cm(s), with a depth of 2 cm(s), of the left middle finger. Vital Signs: 11:36 BP 131 / 83; Pulse 76; Resp 17; Temp 98.2; Pulse Ox 100% on R/A; Weight 87.54 kg; jl7 Height 5 ft. 3 in. (160.02 cm); Pain 10/10; 12:15 Pulse 82; Pulse Ox 100% ; ko1 13:16 BP 110 / 73; Pulse 76; Resp 16; Pulse Ox 99% ; ko1 11:36 Body Mass Index 34.19 (87.54 kg, 160.02 cm) jl7 Procedures: 13:14 Nerve block: (digital) of left middle fingernail Medication: Lidocaine 1% without snw epinephrine Marcaine 0.5%, Amount: 8 mls were injected, Effect: the patient has resolution of the pain, Set up for procedure. Performed by Ivelisse MELCHOR Patient tolerated well. Laceration: 13:14 Wound Repair of 3cm ( 1.2in ) full thickness laceration to left middle finger. snw Irregularly shaped.. bone of tuft area exposed, area thoroughly flushed with hibiclens and 0.9 NS. Nail placed back under nail ridge and edge tacked with 4-0 prolene. Fingertip aligned and medial edge sutured with 4-0 prolene, pt tolerated well . Distal neuro/vascular/tendon intact. Anesthesia: Digital block administered with 4 mls of 0.25% marcaine, 4 mls of 1% lidocaine. Wound prep: Extensive cleansing with hibiclenz by pr, Wound irrigation. Skin closed with 5 4-0 Prolene using simple sutures and sterile technique. Dressed with Neosporin, non-adherent dressing, finger splint. Patient tolerated well. MDM: 11:40 Patient medically screened. snw 11:54 Differential diagnosis: dislocation, open fracture. Data reviewed: vital signs, nurses snw notes. 03 11:49 Order name: Suture Tray Setup; Complete Time: 11:58 snw Administered Medications: 12:03 Drug: Boostrix Tdap 0.5 ml Route: IM; Site: left deltoid; ko1 12:51 Follow up: Response: No adverse reaction ko1 13:15 Drug: Lidocaine (1 %) 5 mg Route: Infiltration; ko1 13:15 Drug: Marcaine (bupivacaine) (0.25 %) 5 ml Route: Infiltration; ko1 Disposition: 18:54 Co-signature as Attending Physician, Lj Epperson DO I was immediately available on-site ms3 in the Emergency Department for consultation in the care of the patient. 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 Followup: snw - With: Emergency Department - When: As needed - Reason: Worsening of condition Followup: snw - With: Private Physician - When: 10 - 14 days - Reason: Staple/Suture removal Discharge Instructions: - Discharge Summary Sheet snw - Laceration Care, Adult snw - Hand Washing snw - Crush Injury of the Hand snw - Hand Pain snw Forms: - Medication Reconciliation Form snw - Thank You Letter snw - Antibiotic Education snw - Prescription Opioid Use snw - Work release form eb Prescriptions: - Cephalexin 500 mg Oral Capsule - take 1 capsule by ORAL route every 8 hours for 10 days; 30 capsule; Refills: 0, snw Product Selection Permitted - Tramadol 50 mg Oral Tablet - take 1 tablet by ORAL route every 8 hours as needed; 12 tablet; Refills: 0, snw Product Selection Permitted Signatures: Ivelisse Bautista, [employer] Dharmesh Junior RN RN william7 Lj Epperson DO DO ms3 Iris Jerry, RN RN ko1 Corrections: (The following items were deleted from the chart) 11:40 11:39 PMHx: None; oanh jlDougie
--- NOTE | 2022-10-06 13:28 | ER ---
Nurse's Notes [facility] Name: Fauzia Park Age: 22 yrs Sex: Female : 2000 Arrival Date: 10/06/2022 Time: 11:22 Bed 18 Private MD: Diagnosis: Laceration without foreign body of left middle finger with damage to nail-near amputation of distal fingertip Presentation: 10/06 11:36 Chief complaint: Patient states: Left middle finger partial avulsion at fingernail. jl7 Coronavirus screen: At this time, the client does not indicate any symptoms associated with coronavirus-19. Ebola Screen: No symptoms or risks identified at this time. Initial Sepsis Screen: Does the patient meet any 2 criteria? No. Patient's initial sepsis screen is negative. Does the patient have a suspected source of infection? No. Patient's initial sepsis screen is negative. Risk Assessment: Do you want to hurt yourself or someone else? Patient reports no desire to harm self or others. Onset of symptoms was October 06, 2022 at 11:10. 11:36 Method Of Arrival: Ambulatory [facility] 11:36 Acuity: ALEXIS 4 jl7 Triage Assessment: 11:39 General: Appears in no apparent distress. uncomfortable, Behavior is calm, cooperative, jl7 appropriate for age. Pain: Complains of pain in left middle finger Pain currently is 10 out of 10 on a pain scale. Musculoskeletal: Swelling absent. Injury Description: Avulsion sustained to left middle finger. Historical: - Allergies: 11:39 Benadryl; jl7 - Home Meds: 11:39 Lexapro Oral [Active]; jl7 - PMHx: 11:39 Depressive disorder; jl7 - PSHx: 11:39 gastric sleeve December 2019; jl7 - Immunization history:: Last tetanus immunization: < 10 years ago. - Social history:: Smoking status: Patient denies any tobacco usage or history of. Screenin:15 [facility] ED Fall Risk Assessment (Adult) History of falling in the last 3 months, ko1 including since admission No falls in past 3 months (0 pts) Confusion or Disorientation No (0 pts) Intoxicated or Sedated No (0 pts) Impaired Gait No (0 pts) Mobility Assist Device Used No (0 pt) Altered Elimination No (0 pt) Score/Fall Risk Level 0 - 2 = Low Risk Oriented to surroundings, Maintained a safe environment, Educated pt \T\ family on fall prevention, incl call for assistance when getting out of bed, Assessed \T\ reinforced patient's understanding of fall precautions, Provided non-skid footwear, Hourly rounding (assess needs \T\ fall precautionary measures) done, Used ambulatory aids as needed (educated on \T\ assisted with), Used gait belt as appropriate. Abuse screen: Denies threats or abuse. Denies injuries from another. Nutritional screening: No deficits noted. Tuberculosis screening: No symptoms or risk factors identified. Assessment: 12:00 General: Appears in no apparent distress. uncomfortable, Behavior is calm, cooperative, ko1 appropriate for age. Pain: Complains of pain in left hand and left middle finger. Neuro: No deficits noted. Cardiovascular: No deficits noted. Respiratory: No deficits noted. GI: No deficits noted. : No deficits noted. EENT: No deficits noted. Derm: No deficits noted. Musculoskeletal: No deficits noted. Injury Description: Avulsion sustained to left middle finger is partial. Vital Signs: 11:36 BP 131 / 83; Pulse 76; Resp 17; Temp 98.2; Pulse Ox 100% on R/A; Weight 87.54 kg; jl7 Height 5 ft. 3 in. (160.02 cm); Pain 10/10; 12:15 Pulse 82; Pulse Ox 100% ; ko1 13:16 BP 110 / 73; Pulse 76; Resp 16; Pulse Ox 99% ; ko1 11:36 Body Mass Index 34.19 (87.54 kg, 160.02 cm) jl7 ED Course: 11:22 Patient arrived in ED. mr 11:25 Ivelisse Bautista, JILL is PHCP. snw 11:25 Lj Eppesron DO is Attending Physician. snw 11:39 Iris Jerry, RN is Primary Nurse. ko1 11:39 Triage completed. jl7 11:39 Arm band placed on right wrist. jl7 12:15 Patient has correct armband on for positive identification. Bed in low position. Call ko1 light in reach. Side rails up X 1. Pulse ox on. NIBP on. 13:16 Patient did not have IV access during this emergency room visit. ko1 13:17 Assist provider with laceration repair on left middle finger using sutures. Set up ko1 tray. Performed by Ivelisse MELCHOR Dressed with Derek Neosporin, Patient tolerated well. Administered Medications: 12:03 Drug: Boostrix Tdap 0.5 ml Route: IM; Site: left deltoid; ko1 12:51 Follow up: Response: No adverse reaction ko1 13:15 Drug: Lidocaine (1 %) 5 mg Route: Infiltration; ko1 13:15 Drug: Marcaine (bupivacaine) (0.25 %) 5 ml Route: Infiltration; ko1 Medication: 12:15 Vaccine Information Statement (VIS) provided today. Questions and/or concerns ko1 addressed. VIS edition date: 2022. Outcome: 13:28 Discharge ordered by . som 13:41 Discharged to home ambulatory, with family. ko1 13:41 Condition: improved 13:41 Discharge instructions given to patient, family, Instructed on discharge instructions, follow up and referral plans. medication usage, wound care, Demonstrated understanding of instructions, follow-up care, medications, wound care, Prescriptions given X 2. 13:42 Patient left the ED. ko1 Signatures: Ivelisse Bautista FNP-C [employer] MACH[employer] OPERATOR-[employer] Adriana Ferrell JuniorDharmesh, RN RN william7 Iris Jerry, MELINA RN ko1 Corrections: (The following items were deleted from the chart) 11:40 11:39 PMHx: None; oanh hugo 13:19 12:15 No provider procedures requiring assistance completed. ko1 ko1
[2022-10-06 13:58] VITALS: TEMP 98.2
[2022-10-06 14:00] VITALS: BP 110/73; O2SAT 99
== END 2022-10-06 13:42 | disposition home or self-care (01) ==
LOC: ER 11:19
PROC: 0HQGXZZ Repair Left Hand Skin, External Approach (ICD-10-PCS; principal; 2022-10-06)
DX: S61.313A Laceration without foreign body of left middle finger with damage to nail, initial encounter (principal); Z88.8 Allergy status to other drugs, medicaments and biological substances
CPT/HCPCS: 64450; 96372; 99284; 12002; J2001

== ENCOUNTER 2024-11-06 17:13 | Emergency (ER) | payer OTHER ==
[2024-11-06] MEDS ORDERED: IBUPROFEN 200 MG TAB PO ONE (17:53)
[2024-11-06] MEDS ORDERED: IBUPROFEN 400 MG TAB ONE (17:53)
--- NOTE | 2024-11-06 18:19 | RAD REPORT ---
EXAM: Foot Right 3 View HISTORY: PAIN COMPARISON: None FINDINGS: Bones: No acute fracture identified. Alignment:No significant malalignment. Degenerative changes:None significant. Other: n/a IMPRESSION: No acute osseous abnormality.
--- NOTE | 2024-11-06 18:32 | ER ---
Nurse's Notes [facility] Name: Fauzia Park Age: 24 yrs Sex: Female : 2000 Arrival Date: 11/06/2024 Time: 17:13 Bed 15 Private MD: Diagnosis: Other sprain of right foot Presentation: 11/06 17:22 Chief complaint: Patient states: R foot started hurting about 3 weeks ago. 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 Coronavirus screen: Client denies travel out of the [place] in the last 14 days. At this time, the client does not indicate any symptoms associated with coronavirus-19. Ebola Screen: Patient denies travel to an Ebola-affected area in the 21 days before illness onset. Initial Sepsis Screen: Does the patient meet any 2 criteria? No. Patient's initial sepsis screen is negative. Does the patient have a suspected source of infection? No. Patient's initial sepsis screen is negative. Risk Assessment: Do you want to hurt yourself or someone else? Patient reports no desire to harm self or others. Onset of symptoms was October 13, 2024. 17:22 Method Of Arrival: Ambulatory ll1 17:22 Acuity: ALEXIS 4 ll1 Triage Assessment: 17:23 General: Appears uncomfortable, Behavior is calm, cooperative, appropriate for age. ll1 Pain: Complains of pain in right foot Quality of pain is described as aching. Musculoskeletal: Reports pain in right foot. Injury Description: Bruise. Historical: - Allergies: 17:18 Benadryl; ll1 - PMHx: 17:18 Anxiety; depressive disorder; ll1 - PSHx: 17:18 Adenoid excision; bilateral knee repair; bilateral leg surgery tibial bone; ear tubes; ll1 gastric sleeve December 2019; - Immunization history:: Adult Immunizations up to date. - Infectious Disease History:: Denies. - Social history:: Smoking status: Patient denies any tobacco usage or history of. Screenin:03 [facility] ED Fall Risk Assessment (Adult) History of falling in the last 3 months, db including since admission No falls in past 3 months (0 pts) Confusion or Disorientation No (0 pts) Intoxicated or Sedated No (0 pts) Impaired Gait No (0 pts) Mobility Assist Device Used No (0 pt) Altered Elimination No (0 pt) Score/Fall Risk Level 0 - 2 = Low Risk Oriented to surroundings, Maintained a safe environment. Abuse screen: Denies threats or abuse. Denies injuries from another. Nutritional screening: No deficits noted. Tuberculosis screening: No symptoms or risk factors identified. Assessment: 17:58 Reassessment: Patient appears in no apparent distress at this time. Patient and/or db family updated on plan of care and expected duration. Pain level reassessed. Patient is alert, oriented x 3, equal unlabored respirations, skin warm/dry/pink. DENIES RECENT INJURY STATES IS GETTING WORSE. General: Appears in no apparent distress. comfortable, Behavior is calm, cooperative. Pain: Complains of pain in right foot. Neuro: Level of Consciousness is awake, alert, obeys commands, Oriented to person, place, time, situation. Respiratory: Airway is patent Respiratory effort is even, unlabored, Respiratory pattern is regular, symmetrical. 18:45 Reassessment: Patient appears in no apparent distress at this time. Patient and/or db family updated on plan of care and expected duration. Pain level reassessed. Patient is alert, oriented x 3, equal unlabored respirations, skin warm/dry/pink. Patient states feeling better. General: Appears. General: Appears in no apparent distress. comfortable, Behavior is calm, cooperative. Vital Signs: 17:22 BP 130 / 90; Pulse 83; Resp 17; Temp 98; Pulse Ox 100% ; Weight 98.88 kg; Height 5 ft. ll1 3 in. ; Pain 10/10; 18:00 BP 115 / 71; Pulse 73; Resp 16; Pulse Ox 100% on R/A; db 17:22 Body Mass Index 38.62 (98.88 kg, 160.02 cm) ll1 17:22 Pain Scale: Adult ll1 ED Course: 17:17 Patient arrived in ED. cj3 17:18 Chica Bedoya is Attending Physician. ci 17:18 Arm band placed on Patient placed in an exam room, on a stretcher. ll1 17:23 Triage completed. ll1 17:24 Florence Oela, RN is Primary Nurse. db 18:03 Patient has correct armband on for positive identification. Bed in low position. Call db light in reach. Side rails up X 1. Warm blanket given. 18:10 Foot Right 3 View XRAY In Process Unspecified. EDMS 18:40 Luca wrap to right foot. db 18:45 Provided Education on: DISCHARGE AND FOLLOWUP. db 18:45 No provider procedures requiring assistance completed. Patient did not have IV access db during this emergency room visit. Administered Medications: 17:55 Drug: Ibuprofen PO 600 mg PO once Route: PO; db 18:43 Follow up: Response: No adverse reaction db Medication: 18:45 VIS not applicable for this client. db Outcome: 18:32 Discharge ordered by . ci 18:45 Discharged to home ambulatory, db 18:45 Condition: stable 18:45 Discharge instructions given to patient, Instructed on discharge instructions, follow up and referral plans. Prescriptions given X 1, 18:46 Patient left the ED. db Signatures: Dispatcher [employer] EDMS Bell Burt RN RN ll1 Florence Olea RN RN db Iheonunekwu, Dinora Leyva cj3
--- NOTE | 2024-11-06 18:32 | EDPHYS ---
Physician Documentation [facility] Name: Fauzia Park Age: 24 yrs Sex: Female : 2000 Arrival Date: 11/06/2024 Time: 17:13 Bed 15 Private MD: ED Physician Chica Bedoya HPI: 11/06 18:05 This 24 yrs old Female presents to ER via Ambulatory with complaints of Right ci Foot Pain. 18:05 Patient is a 24-year-old female with PMH anxiety, depression who presents with right ci foot pain that began 3 weeks ago. Patient reports a student stepped on her foot today which aggravated her symptoms. No trauma/fall. Has been taking Tylenol with no significant improvement. . Historical: - Allergies: 17:18 Benadryl; ll1 - PMHx: 17:18 Anxiety; depressive disorder; ll1 - PSHx: 17:18 Adenoid excision; bilateral knee repair; bilateral leg surgery tibial bone; ear tubes; ll1 gastric sleeve December 2019; - Immunization history:: Adult Immunizations up to date. - Infectious Disease History:: Denies. - Social history:: Smoking status: Patient denies any tobacco usage or history of. ROS: 18:05 Constitutional: Negative for fever, chills, and weight loss, ci 18:05 MS/extremity: Positive for pain, swelling, tenderness, Exam: 18:05 Constitutional: This is a well developed, well nourished patient who is awake, alert, ci and in no acute distress. Head/Face: Normocephalic, atraumatic. Eyes: Pupils equal round and reactive to light, extra-ocular motions intact. Lids and lashes normal. Conjunctiva and sclera are non-icteric and not injected. Cornea within normal limits. Periorbital areas with no swelling, redness, or edema. ENT: Nares patent. No nasal discharge, no septal abnormalities noted. Tympanic membranes are normal and external auditory canals are clear. Oropharynx with no redness, swelling, or masses, exudates, or evidence of obstruction, uvula midline. Mucous membranes moist. Neck: Trachea midline, no thyromegaly or masses palpated, and no cervical lymphadenopathy. Supple, full range of motion without nuchal rigidity, or vertebral point tenderness. No Meningismus. Chest/axilla: Normal chest wall appearance and motion. Nontender with no deformity. No lesions are appreciated. Cardiovascular: Regular rate and rhythm with a normal S1 and S2. No gallops, murmurs, or rubs. Normal PMI, no JVD. No pulse deficits. Respiratory: Lungs have equal breath sounds bilaterally, clear to auscultation and percussion. No rales, rhonchi or wheezes noted. No increased work of breathing, no retractions or nasal flaring. Abdomen/GI: Soft, non-tender, with normal bowel sounds. No distension or tympany. No guarding or rebound. No evidence of tenderness throughout. Back: No spinal tenderness. No costovertebral tenderness. Full range of motion. Skin: Warm, dry with normal turgor. Normal color with no rashes, no lesions, and no evidence of cellulitis. Neuro: Awake and alert, GCS 15, oriented to person, place, time, and situation. Cranial nerves II-XII grossly intact. Motor strength 5/5 in all extremities. Sensory grossly intact. Cerebellar exam normal. Normal gait. 18:05 Musculoskeletal/extremity: Compartment Syndrome exam of affected extremity: is normal. ci no pain, no numbness, no tingling, no sensation deficit, no weak pulses, Right foot dorsum swollen with mild tenderness to palpation. No step-offs or deformity. DP/PT 2+, sensation to light touch is intact.. Vital Signs: 17:22 BP 130 / 90; Pulse 83; Resp 17; Temp 98; Pulse Ox 100% ; Weight 98.88 kg; Height 5 ft. ll1 3 in. ; Pain 10/10; 18:00 BP 115 / 71; Pulse 73; Resp 16; Pulse Ox 100% on R/A; db 17:22 Body Mass Index 38.62 (98.88 kg, 160.02 cm) ll1 17:22 Pain Scale: Adult ll1 MDM: 17:18 Medical Screening Exam initiated ci 18:05 Differential Diagnosis Fracture, dislocation, sprain/strain, contusion. Data reviewed: ci vital signs, nurses notes. 18:30 ED course: X-ray with no acute fracture. Suspicion for strain/sprain, will apply Luca ci wrap and discharged with Ortho follow-up. Given RICE precautions.. 11/06 17:32 Order name: Foot Right 3 View XRAY; Complete Time: 18:30 ci 11/06 18:34 Order name: Luca Tran; Complete Time: 18:43 ci Administered Medications: 17:55 Drug: Ibuprofen PO 600 mg PO once Route: PO; db 18:43 Follow up: Response: No adverse reaction db Disposition Summary: 11/06/24 18:32 Discharge Ordered Notes: Location: Home ci Condition: Stable ci Diagnosis - Other sprain of right foot ci Followup: ci - With: Private Physician - When: 2 - 3 days - Reason: Recheck today's complaints, Re-evaluation by your physician Discharge Instructions: - Discharge Summary Sheet ci - Foot Sprain ci Forms: - Medication Reconciliation Form ci - Antibiotic Education ci - Prescription Opioid Use ci - Patient Portal Instructions ci - Leadership Thank You Letter ci Prescriptions: - Anaprox DS 550 mg Oral Tablet - take 1 tablet ORAL route every 12 hours As needed; 20 tablet; Refills: 0, ci Product Selection Permitted Signatures: 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 Head/Face: Normocephalic, atraumatic. Eyes: Pupils equal round and reactive to light, extra-ocular motions intact. Lids and lashes normal. Conjunctiva and sclera are non-icteric and not injected. Cornea within normal limits. Periorbital areas with no swelling, redness, or edema. ENT: Nares patent. No nasal discharge, no septal abnormalities noted. Tympanic membranes are normal and external auditory canals are clear. Oropharynx with no redness, swelling, or masses, exudates, or evidence of obstruction, uvula midline. Mucous membranes moist. Neck: Trachea midline, no thyromegaly or masses palpated, and no cervical lymphadenopathy. Supple, full range of motion without nuchal rigidity, or vertebral point tenderness. No Meningismus. Chest/axilla: Normal chest wall appearance and motion. Nontender with no deformity. No lesions are appreciated. Cardiovascular: Regular rate and rhythm with a normal S1 and S2. No gallops, murmurs, or rubs. Normal PMI, no JVD. No pulse deficits. Respiratory: Lungs have equal breath sounds bilaterally, clear to auscultation and percussion. No rales, rhonchi or wheezes noted. No increased work of breathing, no retractions or nasal flaring. Abdomen/GI: Soft, non-tender, with normal bowel sounds. No distension or tympany. No guarding or rebound. No evidence of tenderness throughout. Back: No spinal tenderness. No costovertebral tenderness. Full range of motion. Skin: Warm, dry with normal turgor. Normal color with no rashes, no lesions, and no evidence of cellulitis. MS/ Extremity: Pulses equal, no cyanosis. Neurovascular intact. Full, normal range of motion. Neuro: Awake and alert, GCS 15, oriented to person, place, time, and situation. Cranial nerves II-XII grossly intact. Motor strength 5/5 in all extremities. Sensory grossly intact. Cerebellar exam normal. Normal gait. ci
[2024-11-06 18:57] VITALS: TEMP 98; O2SAT 100
[2024-11-06 18:59] VITALS: BP 115/71
== END 2024-11-06 18:46 | disposition home or self-care (01) ==
LOC: ER 17:13
DX: S93.691A Other sprain of right foot, initial encounter (principal); Z88.8 Allergy status to other drugs, medicaments and biological substances
CPT/HCPCS: 99283